=== PATIENT | female | born 1980 | race Caucasian/White ===

== ENCOUNTER 2019-05-28 13:46 | Outpatient (CLI) | payer OTHER ==
[~2019-05-28 13:46] MED LIST: IPRA4AER PO; MOME13HF INH; TRAZ-175 PO
== END 2019-05-28 23:59 | disposition home or self-care (01) ==
LOC: RAD 13:46
PROVIDERS: ATTEND Nurse Practitioner Primary Care
DX: N85.4 Malposition of uterus (principal); D25.1 Intramural leiomyoma of uterus
CPT/HCPCS: 76830